=== PATIENT | male | born 1930 | race Caucasian/White ===

== ENCOUNTER 2018-03-08 08:59 | Day surgery (SDC) | payer OTHER ==
[~2018-03-08] VITALS: Ht 188 cm; Wt 88.0 kg
[~2018-03-08 08:59] MED LIST: ALPRAZOLAM0.25 M2 PO; ASPIR-LOW81 MG PO; MULTI VITAMIN1 EACH PO; SIMVASTATIN10 MG PO
== END 2018-03-08 14:46 | disposition home or self-care (01) ==
LOC: CATH 08:59
DX: I25.10 Atherosclerotic heart disease of native coronary artery without angina pectoris (principal); I35.0 Nonrheumatic aortic (valve) stenosis; I10 Essential (primary) hypertension; E78.5 Hyperlipidemia, unspecified; Z79.82 Long term (current) use of aspirin
CPT/HCPCS: 85347; C1750; C1769; C1887; J0153; J1644; J2250; J3010